=== PATIENT | female | born 1955 | race African-American/Black ===

== ENCOUNTER 2017-03-28 07:19 | Day surgery (SDC) | payer OTHER ==
[2017-03-25 13:31] VITALS: BMI 26.2
[2017-03-28 08:10] LABS: INR 1.1 (0.82-1.09); PROTHROMBIN TIME (PATIENT) 12.4 SEC (9.98-11.88)
[2017-03-28 08:14] LABS: BASO % 1.1 % (0-2.0); EOS % 2.7 % (0-4.5); HEMATOCRIT 37.6 % (32.4-45.2); HEMOGLOBIN 11.7 GM/dL (10.7-15.3); LYMPH % 34.5 % (8-40); MEAN CELL VOLUME 83.7 fl (80-96); MEAN PLT VOLUME 7.2 fl (7.5-11.1); MONO % 7.3 % (3.8-10.2); NEUT % 54.4 % (42.8-82.8); PLATELET COUNT 519 K/MM3 (134-434); RBC 4.49 M/mm3 (3.60-5.2); RDW 14.7 % (11.6-15.6); WHITE BLOOD COUNT 9.4 K/mm3 (4.0-10.0)
[2017-03-28 08:55] VITALS: TEMP 98.1
[2017-03-28 11:32] VITALS: BP 142/84; PULSE 78
--- NOTE | 2017-03-30 14:14 | PATH ---
Cytology Non-Gynecological Report Patient Name: JEWELL ROBBINS [facility]. Rec. 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 SUSPICIOUS CELLS PRESENT. SUSPICIOUS FOR SQUAMOUS CELL CARCINOMA. SCATTERED ATYPICAL SQUAMOUS CELLS WITH NUCLEAR ENLARGEMENT, HYPERCHROMASIA, DENSE FOCALLY ORANGEOPHILIC CYTOPLASM AND COARSE CHROMATIN, DISPERSED RARE CLUSTERS AND SINGLE CELLS IN A BACKGROUND OF MARKED ACUTE AND CHRONIC INFLAMMATION AND CELLULAR DEBRIS. SEE COMMENT. Comment: The atypical squamous cells show severe cytologic atypia in a background of marked inflammation and degenerative changes. Given the prior history of vocal cord carcinoma s/p RT, overall findings are suspicious for squamous cell carcinoma. Suggest clinical and radiologic correlation. Office of Dr. Cline informed that significant findings will be faxed ([employer]). Electronically Signed Armida Castaneda M.D. Gross Description Approximately 50 cc of bloody fluid received fixed in 50% alcohol. Two cytofunnels and one cellblock prepared.
== END 2017-03-28 11:30 | disposition home or self-care (01) ==
LOC: JRADIR 07:19
PROVIDERS: ATTEND Radiology Radiation Oncology
PROC: 0J943ZX Drainage of Right Neck Subcutaneous Tissue and Fascia, Percutaneous Approach, Diagnostic (ICD-10-PCS; principal; 2017-03-28 10:00)
DX: L02.818 Cutaneous abscess of other sites (principal); C32.0 Malignant neoplasm of glottis; Z92.3 Personal history of irradiation
CPT/HCPCS: 10022; 36415; 76942; 85025; 85610; 87070; 87075; 87102; 87116; 87186; 87205; 87206; 87210; 88173; 88305-TC

== ENCOUNTER 2017-12-02 14:18 | Emergency (ER) | payer OTHER ==
[2017-12-02 14:30] VITALS: TEMP 98.9; BMI 25.4
--- NOTE | 2017-12-02 14:30 | PDOC ---
Rapid Medical Evaluation Chief Complaint: Trach Tube Replacement Time Seen by Provider: 12/02/17 14:24 Medical Evaluation: Allergies Allergy/AdvReac Type Severity Reaction Status Date / Time No Known Drug Allergies Allergy Verified 03/25/17 13:31 12/02/17 14:25 c/o bleeding from trach today/ CA of laryngx has tracheostomy and GTT, denies fever/ chills, increased secretions. PE: trach site mild irritation no active bleeding A: tracheal bleeding P: cbc/ cmp/ pt/ ptt, patient to the ER for further management of care. 12/02/17 14:[address] Owen Discharge Disposition - Diagnosis Bleeding from throat - Referrals - Patient Instructions - Post Discharge Activity
--- NOTE | 2017-12-02 15:02 | PDOC ---
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 Patient reports 2 days of right ear pain that radiates to her jaw, and rates the pain 7/10. She notes some bleeding from the tracheostomy site this morning.Her family member that she does not see an oncologist. Family states she last received radiation in 2015 but refused chemotherapy. Family states this is the 3rd time the cancer has returned. She was told by her ENT surgeon that surgery is not an option and has an appointment with a [place] doctor on the for a second opinion. She has been taking her Percocet and Gabapentin on and off since without relief. Family states they have tried to get in touch with her PCP to prescribe her something stronger but was not able to. She comes to the ED seeking pain management. Denies any recent fever, chills, shortness of breath, nausea, vomiting, abdominal pain. Surgical Hx: total laryngectomy in April 27, [address] José Mclaughlin @ [facility]. G-tube placement ENT surgeon: Dr. José Mclaughlin PCP: Mabel Gordon <Rosie Raygoza - Last Filed: 12/02/17 16:47> - Physicial Exam PE: 12/02/17 17:33 Agree with resident exam. + large swelling to anterior neck. Reduced in size as per pt and family. Tracheostomy is patent, with no tube in place, and no active bleeding from the site. Lungs CTA b/l. 12/02/17 18:37 - Medical Decision Making 12/02/17 18:38 PT presents to the ED complaining of minimal bleeding from the trach site. Also complaining of pain in the L ear. After discussion with pts ENT and family , patient is not a surgical candidate even if she has new mets. Labs are unremarkable. Family and patient state that the main issue is pain control. Will write for diluadid through the peg tube and discharge home. Case discussed with PCP who will see her on Tuesday. <Estrella Llamas - Last Filed: 12/02/17 18:42>
[2017-12-02] MEDS ORDERED: morphine CARPU-JECT 4 MG/1 ML DISP.SYRIN IVPUSH ONE (15:19)
--- NOTE | 2017-12-02 15:21 | PDOC ---
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 The R sided facial pain began 5 days ago, starts at the ear and radiates down to the jaw. There is no active trach bleeding at bedside. Her larynx was removed on April [address] José Mclaughlin at [place] and he also inserted a permanent tracheostomy. She later had a pet scan on Sep 21 which showed tumor recurrence and Dr. Mclaughlin's office deemed the tumor not further operable. She does not have an oncologist but her radiation oncologist is Dr. Cline in [place]. She has received radiation in the past but is not currently receiving radiation. She has an appointment with a new ENT doc for a 2nd opinion on the Dec 12. She is not on hospice. She takes percocet and gabapentin for pain control but it has not sufficiently controlled her pain. We called Dr. Mclaughlin office who said the tumor was very aggressive and is probably the source of her facial pain and possibly also the reason for her Tracheostomy blood drip. PCP: Bismark Ruelas Radiation oncologist: Dr. Cline - [phone] ENT surgeon: Dr. José Mclaughlin: [phone] Social Hx: Denies any hx of cigarette, alcohol, or illicit drug usage Allergies: NKA, NKDA Past History - Past Medical History Allergies/Adverse Reactions: Allergies Allergy/AdvReac Type Severity Reaction Status Date / Time No Known Drug Allergies Allergy Verified 12/02/17 14:27 Home Medications: Ambulatory Orders Amlodipine Besylate 10 mg PO DAILY 03/25/17 Carbamide Peroxide [Ear Drops] 14.8 ml OT TID #1 drops 12/02/17 Gabapentin 300 mg PO TID 12/02/17 Hydromorphone HCl [Dilaudid] 1 mg PEG QID PRN #40 mg MDD 4 mg 12/02/17 Levothyroxine [Synthroid -] 150 mcg PO DAILY 12/02/17 Oxycodone HCl/Acetaminophen [Percocet 5-325 mg Tablet] 1 tab PO PRN 12/02/17 Anemia: No Asthma: No Cancer: Yes (larynx) Cardiac Disorders: No CVA: No COPD: No CHF: No Dementia: No Diabetes: No GI Disorders: No Disorders: No HTN: Yes Hypercholesterolemia: No Liver Disease: No Seizures: No Thyroid Disease: No - Surgical History Abdominal Surgery: No Appendectomy: No Cardiac Surgery: No Cholecystectomy: No Lung Surgery: No Neurologic Surgery: No Orthopedic Surgery: No - Suicide/Smoking/Psychosocial Hx Smoking History: Never smoked Hx Alcohol Use: No Drug/Substance Use Hx: No Substance Use Type: None Hx Substance Use Treatment: No Review of Systems - Review of Systems Comments:: CONSTITUTIONAL: Absent: fever, chills, diaphoresis, generalized weakness, malaise, loss of appetite HEENT: Present: Facial pain, throat pain, difficulty swallowing Absent: rhinorrhea, nasal congestion, mouth swelling, ear pain, eye pain, visual Changes CARDIOVASCULAR: Absent: chest pain, syncope, palpitations, irregular heart rate, lightheadedness , peripheral edema RESPIRATORY: Absent: cough, shortness of breath, dyspnea with exertion, orthopnea, wheezing, stridor, hemoptysis GASTROINTESTINAL: Absent: abdominal pain, abdominal distension, nausea, vomiting, diarrhea, constipation, melena, hematochezia GENITOURINARY: Absent: dysuria, frequency, urgency, hesitancy, hematuria, flank pain, genital pain MUSCULOSKELETAL: Absent: myalgia, arthralgia, joint swelling SKIN: Absent: rash, itching, pallor HEMATOLOGIC/IMMUNOLOGIC: Absent: easy bleeding, easy bruising, lymphadenopathy, frequent infections ENDOCRINE: Absent: unexplained weight gain, unexplained weight loss, heat intolerance, cold intolerance NEUROLOGIC: Absent: headache, focal weakness or paresthesias, dizziness, unsteady gait, seizure, mental status changes, bladder or bowel incontinence PSYCHIATRIC: Absent: anxiety, depression, suicidal or homicidal ideation, hallucinations. *Physical Exam - Vital Signs Last Vital Signs Temp Pulse Resp BP Pulse Ox 98.9 F 81 20 142/81 98 12/02/17 14:27 12/02/17 14:27 12/02/17 14:27 12/02/17 14:27 12/02/17 14:27 - Physical Exam Comments: GENERAL: Well developed, well nourished. Awake and alert. Patient is not communicative and has a trach hole. HEENT: Normocephalic, atraumatic. PERRLA, EOMI. No conjunctival pallor. Sclera are non- icteric. Moist mucous membranes. Oropharynx is clear. NECK: There is an empty hole for trach insertion. There are no signs of trach hole infection. No active bleed visualized. Otherwise, neck is supple. Full ROM. No JVD. CARDIOVASCULAR: Regular rate and rhythm. No murmurs, rubs, or gallops. Distal pulses are 2+ and symmetric. PULMONARY: No evidence of respiratory distress. Lungs clear to auscultation bilaterally. No wheezing, rales or rhonchi. ABDOMINAL: Soft. Non-tender. Non-distended. No rebound or guarding. No organomegaly. Normoactive bowel sounds. MUSCULOSKELETAL Normal range of motion at all joints. No bony deformities or tenderness. No CVA tenderness. EXTREMITIES: No cyanosis. No clubbing. No edema. No calf tenderness. SKIN: Warm and dry. Normal capillary refill. No rashes. No jaundice. NEUROLOGICAL: Alert, awake, appropriate. No deficits to light touch in face, upper extremities and lower extremities. No motor deficits in the in face, upper extremities and lower extremities. Normal speech. Gait is normal without ataxia. PSYCHIATRIC: Cooperative. Good eye contact. Appropriate mood and affect. 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 The R sided facial pain began 5 days ago, starts at the ear and radiates down to the jaw. There is no active trach bleeding at bedside. DD includes but not limited to: Trach hole infection, trach bleed, tumor recurrence causing pain, tumor recurrence compressing the tracheostomy. Plan: Cbc, Cmp, Pt/ptt. morphine, surgical consult, radiation oncologist consult , PCP consult, re-assess. Labs unremarkable and WNL. The facial pain is likely a result of cancer mets to her face and nerve impingement. We spoke with doctors Cris Mclaughlin who agree the best way to move forward is pain control. She can have an Appt with her PCP on Tuesday. We will DC with ear drops, pcp fu, and return precautions. *DC/Admit/Observation/Transfer Diagnosis at time of Disposition: Bleeding from throat, Bone metastases, Nerve compression - Discharge Dispostion Disposition: HOME Condition at time of disposition: Stable Decision to Admit order: No - Prescriptions Prescriptions: Carbamide Peroxide [Ear Drops] 14.8 ml OT TID #1 drops Hydromorphone HCl [Dilaudid] 1 mg PEG QID PRN #40 mg MDD 4 mg PRN Reason: Severe Pain - Referrals Referrals: Melinda Monroe MD [Primary Care Provider] - - Patient Instructions Printed Discharge Instructions: DI for Cancer Pain Syndromes Additional Instructions: You came into the ER with severe facial pain. We gave you morphine which helped your pain symptoms. We are sending a very strong medication called dilaudid to your pharmacy. We are also sending ear drops to your pharmacy. Please go pick them up and take as needed for pain control. We spoke with your primary care doctor who is able to see you on Tuesday. Please call him up and schedule an appointment. Come back to the ER if your pain worsens, you get a high fever, can't breathe, start bleeding too much, or have any other new or worsening concerns. Thank you for coming to the [facility] ER. We hope you feel better soon. Print Language: TURKMEN - Post Discharge Activity
[2017-12-02] MEDS ORDERED: morphine SULFATE 4 MG/ML VIAL ONE (15:23)
[2017-12-02 15:37] LABS: BASO % 0.3 % (0-2.0); EOS % 3.3 % (0-4.5); HEMATOCRIT 37.9 % (32.4-45.2); HEMOGLOBIN 12.3 GM/dL (10.7-15.3); MCH 30.2 pg (25.7-33.7); MCHC 32.4 g/dl (32.0-36.0); MEAN CELL VOLUME 93.3 fl (80-96); MEAN PLT VOLUME 8.3 fl (7.5-11.1); MONO % 8.1 % (3.8-10.2); NEUT % 59.3 % (42.8-82.8); PLATELET COUNT 371 K/MM3 (134-434); RBC 4.06 M/mm3 (3.60-5.2); RDW 13.7 % (11.6-15.6)
[2017-12-02 16:03] LABS: ALBUMIN 3.8 g/dl (3.4-5.0); ALK PHOS 74 U/L (45-117); ANION GAP 7 MMOL/L (8-16); BILIRUBIN,TOTAL 0.3 mg/dL (0.2-1); BLOOD UREA NITROGEN 18 mg/dL (7-18); CALCIUM 10.3 mg/dL (8.5-10.1); CHLORIDE 104 mmol/L (98-107); CO2 32 mmol/L (21-32); CREATININE 0.8 mg/dL (0.55-1.3); GLUCOSE,RANDOM 86 mg/dL (74-106); POTASSIUM 4.4 mmol/L (3.5-5.1); SGOT/AST 14 U/L (15-37); SGPT/ALT 19 U/L (13-61); SODIUM 142 mmol/L (136-145); TOT PROT 8.1 g/dl (6.4-8.2)
[2017-12-02 16:04] LABS: INR 1.08 (0.83-1.09); PROTHROMBIN TIME (PATIENT) 12.8 SEC (9.7-13.0)
[2017-12-02 16:07] LABS: ACTIVATED PTT 33.5 SECONDS (25.2-36.5)
[2017-12-02] MEDS ORDERED: HYDROmorphone HCL 2 MG TABLET PEG ONE (16:36)
[2017-12-02 17:39] VITALS: BP 125/88; PULSE 62
== END 2017-12-02 17:39 | disposition home or self-care (01) ==
LOC: JER 14:18
PROC: 3E033NZ Introduction of Analgesics, Hypnotics, Sedatives into Peripheral Vein, Percutaneous Approach (ICD-10-PCS; principal; 2017-12-02)
DX: R04.1 Hemorrhage from throat (principal); C79.51 Secondary malignant neoplasm of bone; C32.9 Malignant neoplasm of larynx, unspecified; Z90.02 Acquired absence of larynx; Z93.0 Tracheostomy status; Z93.1 Gastrostomy status
CPT/HCPCS: 36415; 80053; 85025; 85610; 85730; 99283-25

== ENCOUNTER 2018-03-10 18:18 | Emergency (ER) | payer OTHER ==
--- NOTE | 2018-03-10 18:32 | PDOC ---
Rapid Medical Evaluation Time Seen by Provider: 03/10/18 18:30 Medical Evaluation: Allergies Allergy/AdvReac Type Severity Reaction Status Date / Time No Known Drug Allergies Allergy Verified 03/10/18 18:30 03/10/18 18:30 I have performed a brief in-person evaluation of this patient. The patient presents with a chief complaint of: Gtube malfunction. Pt w/ h/o HTN and advanced stage 4 squamous cell carcinoma of larynx s/p total larynectomy , BIB family who states they are unable to use gtube x several days Pertinent physical exam findings:stable I have ordered the following:labs The patient will proceed to the ED for further evaluation. 03/10/18 19:01 Discharge Disposition - Diagnosis Attention to G-tube - Referrals - Patient Instructions - Post Discharge Activity
[2018-03-10 18:34] VITALS: BP 141/75; PULSE 87; TEMP 99.4; BMI 23.0
[2018-03-10] MEDS ORDERED: SODIUM CHLORIDE 1,000 ML IV STA (18:34)
--- NOTE | 2018-03-10 20:37 | PDOC ---
History of Present Illness - General Chief Complaint: G Tube Problem Stated Complaint: GT TUBE PROBLEM Time Seen by Provider: 03/10/18 18:30 History Source: Other (sister Mary [phone]) - History of Present Illness Initial Comments: 03/10/18 20:35 Best Contact: mary/sister [phone] PCP:Dr Jalen Monroe Pmhx: CA of the larynx, HTN Pshx: 10/10/2017: G2 placement, 04/27/2017 laryngectomy Allergies:NKDA FH:0 Social Hx: Cigarettes/0 Alcohol/ 0 Drugs/0 62-year-old female presents to the emergency department with her sister and her daughter complaining of a clogged G-tube. Patient's daughter states the last time the patient was able to use her G-tube was 4 days ago without any difficulties. 3 days ago, she was able to use it but was giving her a little difficulty with giving minutes. Today, on her feeding, patient was pointed to her daughter that it was leaking around the ostomy. Patient denies fever, chills , nausea/vomiting, abdominal pains, flank pains, urinary symptoms. Past History - Past Medical History Allergies/Adverse Reactions: Allergies Allergy/AdvReac Type Severity Reaction Status Date / Time No Known Drug Allergies Allergy Verified 03/10/18 18:30 Home Medications: Ambulatory Orders Amlodipine Besylate 10 mg PO DAILY 03/25/17 Levothyroxine [Synthroid -] 125 mcg PO DAILY 12/02/17 Anemia: No Asthma: No Cancer: Yes (larynx) Cardiac Disorders: No CVA: No COPD: No CHF: No Dementia: No Diabetes: No GI Disorders: No Disorders: No HTN: Yes Hypercholesterolemia: No Liver Disease: No Seizures: No Thyroid Disease: No - Surgical History Abdominal Surgery: No Appendectomy: No Cardiac Surgery: No Cholecystectomy: No GI Surgery: Yes (g tube) Lung Surgery: No Neurologic Surgery: No Orthopedic Surgery: No - Suicide/Smoking/Psychosocial Hx Smoking History: Never smoked Hx Alcohol Use: No Drug/Substance Use Hx: No Substance Use Type: None Hx Substance Use Treatment: No *Physical Exam - Vital Signs Last Vital Signs Temp Pulse Resp BP Pulse Ox 99.4 F 87 20 141/75 99 03/10/18 18:32 03/10/18 18:32 03/10/18 18:32 03/10/18 18:32 03/10/18 18:32 Moderate Sedation - Procedure Monitoring Vital Signs: Procedure Monitoring Vital Signs Temperature 99.4 F 03/10/18 18:32 Pulse Rate 87 03/10/18 18:32 Respiratory Rate 20 03/10/18 18:32 Blood Pressure 141/75 03/10/18 18:32 O2 Sat by Pulse Oximetry (%) 99 03/10/18 18:32 ED Treatment Course - LABORATORY CBC & Chemistry Diagram: 03/10/18 20:55 03/10/18 20:55 - RADIOLOGY Radiograph Interpretation: 03/10/18 22:40 X-ray: Abdomen flat and upright The PEG tube balloon is projected in the upper abdomen in the location of the gastric body. The PEG tube is in adequate position. There is contrast in the proximal small bowel w/o extravasation. Bowel gas pattern is non obstructive *DC/Admit/Observation/Transfer Diagnosis at time of Disposition: Attention to G-tube - Discharge Dispostion Disposition: HOME Condition at time of disposition: Stable Decision to Admit order: No - Referrals Referrals: Armida Sharma DO [Staff Physician] - - Patient Instructions Printed Discharge Instructions: How to Care for Your PEG Tube Additional Instructions: Your PEG tube was replaced with a 24 [place] X-ray was performed in the emergency department and a tube is in good position. Be sure to follow with your logistics research engineer/physician within 2-4 days Return back to the emergency department for any concerns As per our discussion, you're aware that your calcium level is 11.2. You informed me that you were informed by your doctor that you have a very high calcium level. - Post Discharge Activity
[2018-03-10 21:01] LABS: BASO % 1.3 % (0-2.0); EOS % 2.7 % (0-4.5); HEMATOCRIT 32.6 % (32.4-45.2); HEMOGLOBIN 10.6 GM/dL (10.7-15.3); LYMPH % 17.2 % (8-40); MCH 24.8 pg (25.7-33.7); MCHC 32.5 g/dl (32.0-36.0); MEAN CELL VOLUME 76.6 fl (80-96); MEAN PLT VOLUME 8.5 fl (7.5-11.1); MONO % 11.1 % (3.8-10.2); NEUT % 67.7 % (42.8-82.8); PLATELET COUNT 494 K/MM3 (134-434); RBC 4.25 M/mm3 (3.60-5.2); RDW 15.7 % (11.6-15.6); WHITE BLOOD COUNT 7.9 K/mm3 (4.0-10.0)
[2018-03-10 21:32] LABS: ALBUMIN 2.9 g/dl (3.4-5.0); ALK PHOS 92 U/L (45-117); ANION GAP 8 MMOL/L (8-16); BILIRUBIN,TOTAL 0.4 mg/dL (0.2-1); BLOOD UREA NITROGEN 10 mg/dL (7-18); CALCIUM 11.4 mg/dL (8.5-10.1); CHLORIDE 100 mmol/L (98-107); CO2 31 mmol/L (21-32); CREATININE 0.8 mg/dL (0.55-1.3); GLUCOSE,RANDOM 109 mg/dL (74-106); POTASSIUM 4.2 mmol/L (3.5-5.1); SGOT/AST 16 U/L (15-37); SGPT/ALT 14 U/L (13-61); SODIUM 140 mmol/L (136-145); TOT PROT 7.7 g/dl (6.4-8.2)
== END 2018-03-10 23:15 | disposition home or self-care (01) ==
LOC: JER 18:18
PROC: 0D20XUZ Change Feeding Device in Upper Intestinal Tract, External Approach (ICD-10-PCS; principal; 2018-03-10)
PROC: 3E0337Z Introduction of Electrolytic and Water Balance Substance into Peripheral Vein, Percutaneous Approach (ICD-10-PCS; 2018-03-10)
PROC: 0D20XUZ Change Feeding Device in Upper Intestinal Tract, External Approach (ICD-10-PCS; 2018-03-10)
DX: K94.23 Gastrostomy malfunction (principal); C32.9 Malignant neoplasm of larynx, unspecified; I10 Essential (primary) hypertension; Z90.02 Acquired absence of larynx
CPT/HCPCS: 36415; 74019-TC-FY; 80053; 85025; 99282-25; J7030